=== PATIENT | female | born 1990 | race Caucasian/White ===

== ENCOUNTER 2020-03-13 12:31 | Inpatient (IN) | payer OTHER ==
--- OUTSIDE RECORDS SUMMARY | 2020-03-13 12:35 | XMS ---
:1990 Author Organization [facility] Support Name Relationship Address Phone UE Unavailable Unavailable Unavailable JAMILA SELF / SAME PATIENT [id number] [place] [address] Re-disclosure Warning The records that you are about to access may contain information from federally- assisted alcohol or drug abuse programs. If such information is present, then the following federally mandated warning applies: This information has been disclosed to you from records protected by federal confidentiality rules (42 CFR part 2). The federal rules prohibit you from making any further disclosure of this information unless further disclosure is expressly permitted by the written consent of the person to whom it pertains or as otherwise permitted by 42 CFR part 2. A general authorization for the release of medical or other information is NOT sufficient for this purpose. The Federal rules restrict any use of the information to criminally investigate or prosecute any alcohol or drug abuse patient.The records that you are about to access may contain highly sensitive health information, the redisclosure of which is protected by Article 27-F of the [facility] Public Health law. If you continue you may haveaccess to information: Regarding HIV / AIDS; Provided by facilities licensed or operated by the [facility] Office of Mental Health; or Provided by the [facility] Office for People With Developmental Disabilities. If such information is present, then the following [facility] mandated warning applies: This information has been disclosed to you from confidential records which are protected by state law. State law prohibits you from making any further disclosure of this information without the specific written consent of the person to whom it pertains, or as otherwise permitted by law. Any unauthorized further disclosure in violation of state law may result in a fine or fci sentence or both. A general authorization for the release of medical or other information is NOT sufficient authorization for further disclosure. Insurance Providers Payer name Policy type Policy ID Covered Covered alliance party's Policy P david / Coverage alliance party ID relationship to Gage Inf ormation type gage HEALTH [id number] FIRST Results ID Date Data Source [id number] 02/29/2020 05:07:00 PM EDT [place] Name Value Range Interpretation Code Description Data Millicent rce(s) Supporting Document(s ) [place] Result: This lab was ordered by [facility] and reported by [facility]. ID Date Data Source [id number] 01/04/2020 11:22:00 PM EDT [facility] Name Value Range Interpretation Code Description Data Millicent rce(s) Supporting Document(s ) SARS-CoV-2 [facility] RNA [facility] Ql ANNEMARIE+probe This lab was ordered by [facility] and reported by [facility]. ID Date Data Source [id number] 11/28/2019 09:38:00 AM EDT [place] Name Value Range Interpretation Code Description Data Millicent rce(s) Supporting Document(s ) SARS-CoV-2 [facility] RNA Resp Ql ANNEMARIE+probe This lab was ordered by [facility] a nd reported by [facility]. Procedure
--- NOTE | 2020-03-13 15:42 | BHS.RME ---
Substance Use & Tx History - Substance Use History Alcohol Substance amount: 3pints of vodka Frequency of use: Less than 3 times per week Substance route: Oral Date of Last Use: 03/13/20 - Last Treatment Date of last treatment: 01/30/18 to 01/31/18 not completed Where was last treatment: Detox Physical/Psych/Mental Status - Behavior Eye Contact: Normal - Cooperativeness Cooperativeness: Cooperative - Thinking Thought Processes: Logical Thought content: Future oriented - Physical Health Problems Is patient presently having any pain?: No Does patient presently have any injuries (include location): No Does patient currently have a fever: No CIWA Nausea/Vomitin Muscle Tremors: 3 Anxiety: 3 Agitation: 3 Paroxysmal Sweats: 1-Minimal Palms Moist Orientation: 0-Oriented Tacttile Disturbances: 1-Very Mild Itch/Numbness Auditory Disturbances: 0-None Visual Disturbances: 0-None Headache: 2-Mild CIWA-Ar Total Score: 15
--- NOTE | 2020-03-13 15:47 | HP ---
CIWA Score Nausea/Vomitin Muscle Tremors: 3 Anxiety: 3 Agitation: 3 Paroxysmal Sweats: 1-Minimal Palms Moist Orientation: 0-Oriented Tacttile Disturbances: 1-Very Mild Itch/Numbness Auditory Disturbances: 0-None Visual Disturbances: 0-None Headache: 2-Mild CIWA-Ar Total Score: 15 - Admission Criteria [facility]ASAS Guidelines: Admission for Medically Managed Detox: Requires at least one of the followin. CIWA greater than 12 2. Seizures within the past 24 hours 3. Delirium tremens within the past 24 hours 4. Hallucinations within the past 24 hours 5. Acute intervention needed for co occurring medical disorder 6. Acute intervention needed for co occurring psychiatric disorder 7. Severe withdrawal that cannot be handled at a lower level of care (continued vomiting, continued diarrhea, abnormal vital signs) requiring intravenous medication and/or fluids 8. 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 ...LMP: 03/09/20 ...: No Psych: Yes: Anxiety, Depression - Smoking History Smoking history: Never smoked Have you smoked in the past 12 months: No - Alcohol/Substance Use Hx Alcohol Use: Yes History of Substance Use: reports: None Date of Last Use: 03/13/20 - Social History Usual Living Arrangement: Yes: With Parent Do you think of yourself as: Werner, Lesbian or Homosexual ADL: Support Services Occupation: unemployed History of Recent Travel: No Other Social History: 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,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,no legal issue Admission ROS S - [facility] Chief Complaint: i ma here for detox from alcohol Allergies/Adverse Reactions: Allergies Allergy/AdvReac Type Severity Reaction Status Date / Time No Known Allergies Allergy Verified 01/30/18 17:54 History of Present Illness: this 29 years old female with alcohol dependence seeking detox,withdrawal symptom, last detox [facility] 01/30/19 to 01/31/18 not completed unemployed,living with mother,no legal issue,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,depression longest sobriety 5 months denied seizure syncope Exam Limitations: No Limitations - Ebola screening Have you traveled outside of the country in the last 21 days: No Have you had contact with anyone from an Ebola affected area: No Have you been sick,other than usual withdrawal symptoms: No Do you have a fever: No - Review of Systems Constitutional: Malaise, Night Sweats, Changes in sleep, Weakness EENT: reports: Nose Congestion Respiratory: reports: No Symptoms reported Cardiac: reports: No Symptoms Reported GI: reports: Nausea, Vomiting, Abdominal cramping : reports: No Symptoms Reported Musculoskeletal: reports: Back Pain, Muscle Pain Integumentary: reports: Dryness Neuro: reports: Headache, Tremors Endocrine: reports: No Symptoms Reported Hematology: reports: No Symptoms Reported Psychiatric: reports: No Sypmtoms Reported, Judgement Intact, Mood/Affect Appropiate, Anxious, Depressed Patient History - Patient Medical History Hx Anemia: No Hx Asthma: No Hx Chronic Obstructive Pulmonary Disease (COPD): No Hx Cancer: No Hx Cardiac Disorders: No Hx Congestive Heart Failure: No Hx Hypertension: No Hx Hypercholesterolemia: Yes (no medication) Hx Pacemaker: No HX Cerebrovascular Accident: No Hx Seizures: No Hx Dementia: No Hx Diabetes: No Hx Gastrointestinal Disorders: No Hx Liver Disease: No Hx Genitourinary Disorders: No Hx Sexually Transmitted Disorders: No Hx Renal Disease (ESRD): No Hx Thyroid Disease: No Hx Human Immunodeficiency Virus (HIV): No (2019 negative) Hx Hepatitis C: No Hx Depression: Yes (anxiety) Hx Suicide Attempt: No Hx Bipolar Disorder: No Hx Schizophrenia: No Other Medical History: no suicidal,no homicidal - Patient Surgical History Past Surgical History: No Hx Neurologic Surgery: No Hx Cataract Extraction: No Hx Cardiac Surgery: No Hx Lung Surgery: No Hx Breast Surgery: No Hx Breast Biopsy: No Hx Abdominal Surgery: No Hx Appendectomy: No Hx Cholecystectomy: No Hx Genitourinary Surgery: No Hx Section: No Hx Orthopedic Surgery: No Anesthesia Reaction: No - PPD History Previous Implant?: Yes Documented Results: Negative w/o proof Implanted On Prior R Admission?: Yes Date: 02/01/18 PPD to be Administered?: Yes - Reproductive History Patient is a Female of Child Bearing Age (11 -55 yrs old): Yes Last Menstrual Period: 03/09/20 Patient : No - Smoking Cessation Smoking history: Never smoked Have you smoked in the past 12 months: No Hx Chewing Tobacco Use: No - Substance & Tx. History Hx Alcohol Use: Yes Hx Substance Use: No Substance Use Type: Alcohol Hx Substance Use Treatment: Yes ([facility] 01/30/18 to 01/31/18 not completed) - Substances abused Alcohol Substance route: Oral Frequency: Daily Amount used: 3pints of vodka Age of first use: 22 Date of last use: 03/13/20 Admission Physical Exam [facility] - Vital Signs Vital Signs: bp 96/66 p 85 r 18 t 97.3 bag 0.289 pulse ox 98% - Physical General Appearance: Yes: Moderate Distress, Tremorous, Irritable, Sweating, Anxious HEENTM: Yes: Within Normal Limits, SUMMER, Pharynx Normal Respiratory: Yes: Lungs Clear, Normal Breath Sounds, No Respiratory Distress Neck: Yes: Within Normal Limits, Supple, Trachea in good position Breast: Yes: Breast Exam Deferred Cardiology: Yes: Within Normal Limits, Regular Rhythm, Regular Rate, S1, S2 Abdominal: Yes: Within Normal Limits, Normal Bowel Sounds, Non Tender, Soft Genitourinary: Yes: Within Normal Limits Back: Yes: Muscle Spasm Musculoskeletal: Yes: Back pain, Muscle Pain Extremities: Yes: Tremors Neurological: Yes: 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 technician II-XII NML intact, Alert, Motor Strength 5/5 Integumentary: Yes: Dry Lymphatic: Yes: Within Normal Limits - Diagnostic (1) Alcohol dependence with withdrawal Status: Chronic Qualifiers: Complication of substance-induced condition: uncomplicated Qualified Code(s): F10.230 - Alcohol dependence with withdrawal, uncomplicated (2) Alcohol dependence with intoxication Status: Resolved (3) Syncope Status: Acute (4) Anxiety and depression Status: Chronic (5) Anxiety and depression Status: Acute (6) Insomnia Status: Acute Cleared for Admission [facility] - Detox or Rehab [facility] Level of Care: Medically Managed Detox Regimen/Protocol: Librium Inpatient Rehab Admission - Rehab Decision to Admit Inpatient rehab admission?: No
[2020-03-13] MEDS ORDERED: MENTHOL/PHENOL 1 EACH UD MM PRN (16:16)
[2020-03-13] MEDS ORDERED: ACETAMINOPHEN 325 MG TABLET (FP) PO PRN ×2 (16:16)
[2020-03-13] MEDS ORDERED: MAG HYDROX/AL HYDROX/SIMETH 30 ML UNIT-DOSE CUP PO PRN (16:16)
[2020-03-13] MEDS ORDERED: IBUPROFEN 400 MG TABLET (FP) PO PRN (16:16)
[2020-03-13] MEDS ORDERED: ONDANSETRON *ODT* 4 MG TABLET SL PRN (16:16)
[2020-03-13] MEDS ORDERED: chlordiazePOXIDE HCL 25 MG CAPSULE PO PRN (16:16)
[2020-03-13] MEDS ORDERED: BISMUTH SUBSALICYLATE 524 MG/30 ML UD PO PRN (16:16)
[2020-03-13] MEDS ORDERED: MAGNESIUM CITRATE 300 ML BOTTLE PO PRN (16:16)
[2020-03-13] MEDS ORDERED: MAGNESIUM HYDROX 2400MG/30ML ORAL SUSPENSION 30 ML CUP PO PRN (16:16)
[2020-03-13 16:38] VITALS: BMI 29.0
--- OUTSIDE RECORDS SUMMARY | 2020-03-13 16:47 | XMS ---
:1990 Author Organization [facility] Support Name Relationship Address Phone UE Unavailable Unavailable Unavailable JAMILA SELF / SAME PATIENT [address] [place] [address] Re-disclosure Warning The records that you are [...] is protected by Article 27-F of the [facility] Public Health law. If you continue you may haveaccess to information: Regarding HIV / AIDS; Provided by facilities licensed or operated by the [facility] Office of Mental Health; or Provided by the [facility] Office for People With Developmental Disabilities. If such information is present, then the following [facility] mandated warning applies: This information has [...] law may result in a fine or alf sentence or both. A general authorization for the release of medical or other information is NOT sufficient authorization for further disclosure. Insurance Providers Payer name Policy type Policy ID Covered Covered constitution party's Policy P david / Coverage constitution party ID relationship to Gage Inf ormation type gage HEALTH [id number] FIRST Results ID Date Data Source [id number] 02/29/2020 05:07:00 PM EDT [facility] Name Value Range Interpretation Code Description Data Millicent rce(s) Supporting Document(s ) [place] Result: This lab was ordered by [facility] and reported by [facility]. ID Date Data Source [id number] 01/04/2020 11:22:00 PM EDT [facility] Name Value Range Interpretation Code Description Data Millicent rce(s) Supporting Document(s ) SARS-CoV-2 [facility] RNA [facility] Ql ANNEMARIE+probe This lab was ordered by [facility] and reported by [facility]. ID Date Data Source [id number] 11/28/2019 09:38:00 AM EDT [facility] Name Value Range Interpretation Code Description Data Millicent rce(s) Supporting Document(s ) SARS-CoV-2 [facility] RNA Resp Ql ANNEMARIE+probe This lab was ordered by [facility] a nd reported by [facility]. Procedure
[2020-03-13] MEDS: METHOCARBAMOL 500 MG TABLET PO PRN (17:30)
[2020-03-13] MEDS: hydrOXYzine PAMOATE 25 MG CAPSULE (FP) PO SCH ×2 (17:31→22:32)
[2020-03-13] MEDS: chlordiazePOXIDE HCL 25 MG CAPSULE PO SCH ×2 (17:31→22:32)
[2020-03-13] MEDS ORDERED: chlordiazePOXIDE HCL 25 MG CAPSULE PO ONE (18:31)
--- NOTE | 2020-03-13 18:35 | PN ---
[place] Progress Note Note: patient with severe withdrawal symptom,recieved librium 50 ms before,will give librium 25 mgs po now, Vital Signs Temperature 97.5 F L 03/13/20 17:23 Pulse Rate 74 03/13/20 17:23 Respiratory Rate 18 03/13/20 17:23 Blood Pressure 107/73 03/13/20 17:23 O2 Sat by Pulse Oximetry (%) 98 03/13/20 17:52 close monitoring of vital signs
[2020-03-13] MEDS: THIAMINE HCL 100 MG TABLET (FP) PO SCH (22:32)
[2020-03-13] MEDS: MELATONIN 5 MG TABLETS PO SCH (22:33)
[2020-03-14] MEDS: chlordiazePOXIDE HCL 25 MG CAPSULE PO SCH ×4 (05:52→22:42)
[2020-03-14] MEDS: hydrOXYzine PAMOATE 25 MG CAPSULE (FP) PO SCH ×2 (05:52→10:18)
--- NOTE | 2020-03-14 08:20 | CONSULT ---
[facility] Psychiatric Consult - Data Date of interview: 03/14/20 Admission source: Self-referred Identifying data: Ms Vogel is a 29 years old female, unempolyed with no source of income, living with her mother seeking detox treatment for alcohol Substance Abuse History: Reports history of alcohol use. Refer to addiction counselor's summary for further information Medical History: Significant for hypercholesterolemia Psychiatric History: Patient is known for one previous admission to this facility. She reports that her first psychiatric contact occured at age 19 when she was treated with psychotherapy for Social Anxiety Disorder by a staff psychiatrist at [facility]. She said that she was in treatment for less that 6 months. At age 28, she reports seeing a staff psychiatrist at [facility] because depression, anxiety and alcohol use. She said that she was prescribed Zoloft and Gabapentin which she took for approximately 2-3 months. She denies previous psychiatric hospitalization or suicidal attempt. At present, report feeling irritable and sleeping poorly Physical/Sexual Abuse/Trauma History: Denies history of abuse as a child or DV relationship as an adult Mental Status Exam - Mental Status Exam Alert and Oriented to: Time, Place, Person Cognitive Function: Fair Patient Appearance: Well Groomed Mood: Irritable Affect: Appropriate Patient Behavior: Cooperative Speech Pattern: Clear Voice Loudness: Normal Thought Process: Intact Hallucinations: Denies Suicidal Ideation: Denies Homicidal Ideation: Denies Insight/Judgement: Poor Sleep: Poorly Appetite: Poor Muscle strength/Tone: Normal Gait/Station: Normal Psychiatric Findings - Problem List ([place] 1, 2,3) (1) Anxiety and depression Current Visit: Yes Status: Chronic (2) Alcohol-induced mood disorder Current Visit: Yes Status: Acute (3) Alcohol-induced sleep disorder Current Visit: Yes Status: Acute (4) Alcohol dependence with intoxication Current Visit: Yes Status: Resolved (5) Uncomplicated alcohol dependence Current Visit: Yes Status: Acute (6) HLD (hyperlipidemia) Current Visit: Yes Status: Chronic - Initial Treatment Plan Initial Treatment Plan: 1) Continue Melatonin 5 mg po HS prn for insomnia ordered by rEickson Lewis MD. 2) Continue inpatient detoxification
[2020-03-14] MEDS: PRENATAL VITAMINS W/ FOLIC ACID TABLET (FP) PO SCH (10:17)
--- NOTE | 2020-03-14 10:17 | PN ---
S CIWA - CIWA Score Nausea/Vomitin-Mild Nausea/No Vomiting Muscle Tremors: 3 Anxiety: 3 Agitation: 2 Paroxysmal Sweats: 1-Minimal Palms Moist Orientation: 0-Oriented Tacttile Disturbances: 0-None Auditory Disturbances: 0-None Visual Disturbances: 1-Very Mild Sensitivity Headache: 1-Very Mild CIWA-Ar Total Score: 12 S Progress Note (SOAP) Subjective: 29 years old female was admitted on 03/13/20 for alcohol withdrawal sx management treating with librium detox regiment feels tired prefers to resting in bed limited conversation with staff increase vistaril to 50mg po q6h robaxin 750mg po x 1 Objective: 03/14/20 10:21 Vital Signs - 24 hr 03/13/20 03/13/20 03/13/20 16:35 17:23 17:52 Temperature 97.3 F L 97.5 F L Pulse Rate 85 74 Respiratory 18 18 Rate Blood Pressure 96/66 107/73 O2 Sat by Pulse 100 98 Oximetry (%) 03/13/20 03/14/20 03/14/20 20:28 07:03 09:15 Temperature 97.7 F 97.7 F 96.4 F L Pulse Rate 81 92 H 80 Respiratory 18 18 18 Rate Blood Pressure 102/68 113/76 100/66 O2 Sat by Pulse 100 99 99 Oximetry (%) 03/14/20 10:22 lab pending Assessment: 03/14/20 10:22 alcohol withdrawal Plan: librium regiment
[2020-03-14] MEDS ORDERED: METHOCARBAMOL 750 MG TAB PO ONE (10:30)
[2020-03-14 10:32] LABS: HEMATOCRIT 31.3 % (32.4-45.2); HEMOGLOBIN 10.6 GM/dL (10.7-15.3); MCH 29.8 pg (25.7-33.7); MCHC 33.9 g/dl (32.0-36.0); MEAN PLT VOLUME 8.3 fl (7.5-11.1); PLATELET COUNT 270 K/MM3 (134-434); RBC 3.56 M/mm3 (3.60-5.2); RDW 16.4 % (11.6-15.6); WHITE BLOOD COUNT 4.1 K/mm3 (4.0-10.0)
[2020-03-14] MEDS: METHOCARBAMOL 500 MG TABLET PO PRN (10:54)
[2020-03-14] MEDS: hydrOXYzine PAMOATE 50 MG CAPSULE (FP) PO SCH ×3 (11:18→22:42)
[2020-03-14 11:19] LABS: ALBUMIN 3.5 g/dl (3.4-5.0); BLOOD UREA NITROGEN 5.7 mg/dL (7-18); CALCIUM 8.5 mg/dL (8.5-10.1); CREATININE 0.7 mg/dL (0.55-1.3); POTASSIUM 3.6 mmol/L (3.5-5.1)
[2020-03-14 11:21] LABS: BILIRUBIN,TOTAL 0.7 mg/dL (0.2-1)
[2020-03-14] MEDS: THIAMINE HCL 100 MG TABLET (FP) PO SCH (22:42)
[2020-03-14] MEDS: MELATONIN 5 MG TABLETS PO SCH (22:42)
[2020-03-15] MEDS: chlordiazePOXIDE HCL 25 MG CAPSULE PO SCH ×2 (05:55→10:20)
[2020-03-15] MEDS: hydrOXYzine PAMOATE 50 MG CAPSULE (FP) PO SCH ×2 (05:55→10:20)
[2020-03-15 08:54] VITALS: BP 108/67; PULSE 72; TEMP 97.3
--- NOTE | 2020-03-15 09:07 | DS ---
[facility] Detox Discharge Summary Admission Date: 03/13/20 Discharge Date: 03/15/20 - History Present History: Alcohol Dependence Additional Comments: 29 years old female was admitted on 03/13/20 for alcohol withdrawal sx management treated with librium detox regiment seen by psychiatrist no medical intervention that ms espinoza was treated at out patient mental health services for anxiety depression and alcohol abuse ms espinoza prefers to leave the detox and return to work ms espinoza prefers [facility] as alcohol abuse treatment ms espinoza prefers to locate out patient treatment services at "[facility], I do not like them" "not [facility] they are not good" ms espinoza prefers to fine one out patient for alcohol abuse herself around her neighborhood alert oriented x 3 speech clearly coherently ambulating steady gaits from bed to bathroom ate 90% breakfast tolerated food well General Appearance: Yes: no Distress, mild Tremorous, not Irritable,no Sweating, mild Anxious HEENTM: Yes: Within Normal Limits, SUMMER, Pharynx Normal Respiratory: Yes: Lungs Clear, Normal Breath Sounds, No Respiratory Distress Neck: Yes: Within Normal Limits, Supple, Trachea in good position Breast: Yes: Breast Exam Deferred Cardiology: Yes: Within Normal Limits, Regular Rhythm, Regular Rate, S1, S2 Abdominal: Yes: Within Normal Limits, Normal Bowel Sounds, Non Tender, Soft Genitourinary: Yes: Within Normal Limits Back: Yes: Muscle Spasm Musculoskeletal: Yes: Back pain, Muscle Pain Extremities: Yes: Tremors Neurological: Yes: meal cooker II-XII NML intact, Alert, Motor Strength 5/5 Integumentary: Yes: Dry Lymphatic: Yes: Within Normal Limits Pertinent Past History: time for discharge 49 minutes treatment team met with ms espinoza to discuss benefits of librium regiment completion ms espinoza states that she needs to go to work and following up with her doctor about high cholesterol - Physical Exam Results Vital Signs: Vital Signs Temperature 97.3 F L 03/15/20 08:53 Pulse Rate 72 03/15/20 08:53 Respiratory Rate 18 03/15/20 08:53 Blood Pressure 108/67 03/15/20 08:53 O2 Sat by Pulse Oximetry (%) 100 03/15/20 08:53 Pertinent Admission Physical Exam Findings: alcohol withdrawal Vital Signs - 24 hr 03/14/20 03/14/20 03/14/20 13:03 16:53 20:30 Temperature 97.1 F L 97.1 F L 97.8 F Pulse Rate 70 55 L 75 Respiratory 16 18 17 Rate Blood Pressure 102/76 105/80 111/73 O2 Sat by Pulse 100 100 Oximetry (%) 03/15/20 03/15/20 06:36 08:53 Temperature 97.2 F L 97.3 F L Pulse Rate 73 72 Respiratory 18 18 Rate Blood Pressure 99/69 108/67 O2 Sat by Pulse 100 100 Oximetry (%) Laboratory Tests 03/13/20 03/13/20 03/14/20 17:00 17:02 07:25 WBC RBC Hgb Hct MCV MCH MCHC RDW Plt Count MPV Sodium Potassium Chloride Carbon Dioxide Anion Gap BUN Creatinine Est GFR (CKD-EPI)AfAm Est GFR (CKD-EPI)NonAf Random Glucose Calcium Total Bilirubin AST ALT Alkaline Phosphatase Total Protein Albumin POC Urine HCG, Qual Negative Syphilis Serology Non-reactive COVID-19 (ANNEMARIE) Not detected HIV Ag/Ab Combo Qual 03/14/20 03/14/20 03/14/20 07:25 07:25 07:25 WBC 4.1 RBC 3.56 L Hgb 10.6 L Hct 31.3 L MCV 88.0 MCH 29.8 MCHC 33.9 RDW 16.4 H Plt Count 270 D MPV 8.3 Sodium 139 Potassium 3.6 Chloride 104 Carbon Dioxide 29 Anion Gap 7 L BUN 5.7 L Creatinine 0.7 Est GFR (CKD-EPI)AfAm 137.62 Est GFR (CKD-EPI)NonAf 118.74 Random Glucose 98 Calcium 8.5 Total Bilirubin 0.7 AST 104 H ALT 123 H Alkaline Phosphatase 90 Total Protein 7.0 Albumin 3.5 POC Urine HCG, Qual Syphilis Serology COVID-19 (ANNEMARIE) HIV Ag/Ab Combo Qual Negative lab noted - Treatment Hospital Course: Detox Protocol Followed, Detoxed Safely, Responded well, Discharged Condition Good, Rehab Referral Accepted Patient has Accepted a Rehab Referral to: [facility] - Medication Discharge Medications: Ambulatory Orders NK [No Known Home Medication] 01/30/18 - Diagnosis (1) Substance induced mood disorder Current Visit: Yes Status: Resolved (2) Uncomplicated alcohol dependence Current Visit: Yes Status: Acute (3) HLD (hyperlipidemia) Current Visit: Yes Status: Chronic Qualifiers: Hyperlipidemia type: pure hypertriglyceridemia Qualified Code(s): E78.1 - Pure hyperglyceridemia - AMA Did Patient Leave Against Medical Advice: No CIWA Score - CIWA Score Nausea/Vomitin-No Nausea/No Vomiting Muscle Tremors: 2 Anxiety: 2 Agitation: 1-Slight > Activity Paroxysmal Sweats: No Perspiration Orientation: 0-Oriented Tacttile Disturbances: 0-None Auditory Disturbances: 0-None Visual Disturbances: 1-Very Mild Sensitivity Headache: 1-Very Mild CIWA-Ar Total Score: 7
[2020-03-15] MEDS: PRENATAL VITAMINS W/ FOLIC ACID TABLET (FP) PO SCH (10:20)
[2020-03-15] MEDS ORDERED: FLU VACCINE (FLULAVAL) PF 60 MCG/0.5 ML SYRINGE 2020-2021 IM ONE (12:00)
[2020-03-15] MEDS ORDERED: PNEUMOC 13-VAL CONJ-DIP CRM/PF 0.5 ML DISP.SYRIN IM ONE (12:00)
[2020-03-15] MEDS ORDERED: PNEUMOCOCCAL 23 VACCINE 0.5 ML VIAL IM ONE (12:00)
[2020-03-16] MEDS ORDERED: chlordiazePOXIDE HCL 10 MG CAPSULE PO PRN
[2020-03-16] MEDS ORDERED: chlordiazePOXIDE HCL 10 MG CAPSULE PO SCH (05:00)
[2020-03-17] MEDS ORDERED: chlordiazePOXIDE HCL 10 MG CAPSULE PO SCH (05:00)
[2020-03-18] MEDS ORDERED: chlordiazePOXIDE HCL 10 MG CAPSULE PO ONE (05:00)
== END 2020-03-15 10:40 | disposition home or self-care (01) | DRG 775 ==
LOC: YASAS 12:31 → Y3N 16:44
PROVIDERS: ADMIT Allergy & Immunology; ATTEND Allergy & Immunology
PROC: HZ2ZZZZ Detoxification Services for Substance Abuse Treatment (ICD-10-PCS; principal; 2020-03-13)
DX: F10.230 Alcohol dependence with withdrawal, uncomplicated (principal); F10.24 Alcohol dependence with alcohol-induced mood disorder; F19.24 Other psychoactive substance dependence with psychoactive substance-induced mood disorder; F10.282 Alcohol dependence with alcohol-induced sleep disorder; F32.9 Major depressive disorder, single episode, unspecified; F41.9 Anxiety disorder, unspecified; E78.1 Pure hyperglyceridemia; Z56.0 Unemployment, unspecified
CPT/HCPCS: 36415; 80053; 81025; 85027; 86780; 87389; C9803; Q0162; U0003

== ENCOUNTER 2020-05-03 13:20 | Inpatient (IN) | payer OTHER ==
[2020-05-03 14:03] VITALS: BMI 27.6
[2020-05-03] MEDS ORDERED: ONDANSETRON *ODT* 4 MG TABLET ONE (14:39)
[2020-05-03] MEDS: ONDANSETRON *ODT* 4 MG TABLET SL PRN ×2 (14:40→22:12)
[2020-05-03] MEDS ORDERED: MENTHOL/PHENOL 1 EACH UD MM PRN (14:41)
[2020-05-03] MEDS ORDERED: MAG HYDROX/AL HYDROX/SIMETH 30 ML UNIT-DOSE CUP PO PRN (14:41)
[2020-05-03] MEDS ORDERED: IBUPROFEN 400 MG TABLET (FP) PO PRN (14:41)
[2020-05-03] MEDS ORDERED: MAGNESIUM CITRATE 300 ML BOTTLE PO PRN (14:41)
[2020-05-03] MEDS ORDERED: ACETAMINOPHEN 325 MG TABLET (FP) PO PRN ×2 (14:41)
[2020-05-03] MEDS ORDERED: MAGNESIUM HYDROX 2400MG/30ML ORAL SUSPENSION 30 ML CUP PO PRN (14:41)
[2020-05-03] MEDS: chlordiazePOXIDE HCL 25 MG CAPSULE PO PRN ×2 (15:34→19:19)
[2020-05-03 16:28] LABS: POTASSIUM 3.7 mmol/L (3.5-5.1)
[2020-05-03 16:30] LABS: BLOOD UREA NITROGEN 8.4 mg/dL (7-18); CALCIUM 9.1 mg/dL (8.5-10.1)
[2020-05-03 16:31] LABS: ALBUMIN 4.7 g/dl (3.4-5.0)
[2020-05-03 16:32] LABS: HEMATOCRIT 40.8 % (32.4-45.2); HEMOGLOBIN 13.9 GM/dL (10.7-15.3); MCH 29.9 pg (25.7-33.7); MCHC 33.9 g/dl (32.0-36.0); PLATELET COUNT 556 K/MM3 (134-434); RBC 4.63 M/mm3 (3.60-5.2); RDW 16.2 % (11.6-15.6); WHITE BLOOD COUNT 8.2 K/mm3 (4.0-10.0)
[2020-05-03 16:34] LABS: CREATININE 0.9 mg/dL (0.55-1.3)
[2020-05-03 16:35] LABS: BILIRUBIN,TOTAL 0.5 mg/dL (0.2-1); TOT PROT 9.6 g/dl (6.4-8.2)
[2020-05-03] MEDS: chlordiazePOXIDE HCL 25 MG CAPSULE PO SCH ×2 (17:16→22:12)
[2020-05-03] MEDS: hydrOXYzine PAMOATE 25 MG CAPSULE (FP) PO SCH ×2 (17:17→22:12)
[2020-05-03] MEDS ORDERED: TRIMETHOBENZAMIDE HCL 200MG/2ML INJ IM ONE (18:28)
[2020-05-03] MEDS: METHOCARBAMOL 500 MG TABLET PO PRN (19:18)
[2020-05-03] MEDS: THIAMINE HCL 100 MG TABLET (FP) PO SCH (22:12)
[2020-05-03] MEDS: MELATONIN 5 MG TABLETS PO SCH (22:13)
[2020-05-04] MEDS: hydrOXYzine PAMOATE 25 MG CAPSULE (FP) PO SCH (06:00)
[2020-05-04] MEDS: chlordiazePOXIDE HCL 25 MG CAPSULE PO SCH ×4 (06:00→22:10)
[2020-05-04] MEDS: METHOCARBAMOL 500 MG TABLET PO PRN (06:02)
[2020-05-04] MEDS: ONDANSETRON *ODT* 4 MG TABLET SL PRN (06:03)
[2020-05-04] MEDS ORDERED: IBUPROFEN 600 MG TABLET (FP) PO ONE (10:00)
[2020-05-04] MEDS: PRENATAL VITAMINS W/ FOLIC ACID TABLET (FP) PO SCH (10:09)
[2020-05-04] MEDS: BISMUTH SUBSALICYLATE 262 MG/15 ML BTL PO PRN ×2 (10:13→22:13)
[2020-05-04] MEDS: MELATONIN 5 MG TABLETS PO SCH (22:10)
[2020-05-04] MEDS: THIAMINE HCL 100 MG TABLET (FP) PO SCH (22:10)
[2020-05-05] MEDS: chlordiazePOXIDE HCL 25 MG CAPSULE PO SCH ×4 (05:45→22:02)
[2020-05-05] MEDS: PRENATAL VITAMINS W/ FOLIC ACID TABLET (FP) PO SCH (10:08)
[2020-05-05] MEDS: LOPERAMIDE HCL 2 MG CAPSULE PO PRN (12:15)
[2020-05-05] MEDS: METHOCARBAMOL 500 MG TABLET PO PRN ×2 (12:18→22:05)
[2020-05-05] MEDS: THIAMINE HCL 100 MG TABLET (FP) PO SCH (22:02)
[2020-05-05] MEDS: MELATONIN 5 MG TABLETS PO SCH (22:02)
[2020-05-06] MEDS ORDERED: chlordiazePOXIDE HCL 10 MG CAPSULE PO PRN
[2020-05-06] MEDS: chlordiazePOXIDE HCL 10 MG CAPSULE PO SCH ×4 (06:15→22:06)
[2020-05-06] MEDS: PRENATAL VITAMINS W/ FOLIC ACID TABLET (FP) PO SCH (10:41)
[2020-05-06] MEDS: LOPERAMIDE HCL 2 MG CAPSULE PO PRN (10:43)
[2020-05-06] MEDS: THIAMINE HCL 100 MG TABLET (FP) PO SCH (22:06)
[2020-05-06] MEDS: MELATONIN 5 MG TABLETS PO SCH (22:06)
[2020-05-06] MEDS: METHOCARBAMOL 500 MG TABLET PO PRN (22:07)
[2020-05-07] MEDS ORDERED: chlordiazePOXIDE HCL 10 MG CAPSULE PO SCH (05:00)
[2020-05-07 09:04] VITALS: BP 120/87; PULSE 81; TEMP 97.1
[2020-05-07] MEDS: PRENATAL VITAMINS W/ FOLIC ACID TABLET (FP) PO SCH (09:15)
[2020-05-08] MEDS ORDERED: chlordiazePOXIDE HCL 10 MG CAPSULE PO ONE (05:00)
== END 2020-05-07 11:11 | disposition home or self-care (01) | DRG 775 ==
LOC: YASAS 13:20 → Y3N 14:17
PROVIDERS: ADMIT Allergy & Immunology; ATTEND Allergy & Immunology
PROC: HZ2ZZZZ Detoxification Services for Substance Abuse Treatment (ICD-10-PCS; principal; 2020-05-03)
DX: F10.230 Alcohol dependence with withdrawal, uncomplicated (principal); F10.24 Alcohol dependence with alcohol-induced mood disorder; E78.1 Pure hyperglyceridemia; R00.0 Tachycardia, unspecified; Z56.0 Unemployment, unspecified
CPT/HCPCS: 36415; 80053; 85027; 86780; 93005; 93010; C9803; Q0162; U0003

== ENCOUNTER 2020-07-15 17:13 | Emergency (ER) | payer OTHER ==
[2020-07-15] MEDS ORDERED: HALOPERIDOL LACTATE 5 MG/ML ONE (17:47)
[2020-07-15] MEDS ORDERED: LORazepam 2 MG/ML SDV VIAL IM ONE (17:47)
[2020-07-15] MEDS ORDERED: HALOPERIDOL LACTATE 5 MG/ML IM ONE (17:47)
[2020-07-15] MEDS ORDERED: LORazepam 2 MG/ML SDV VIAL ONE (17:48)
[2020-07-15 20:14] LABS: BASO % 0.9 % (0-2.0); EOS % 1.4 % (0-4.5); HEMATOCRIT 33.9 % (32.4-45.2); HEMOGLOBIN 11.6 GM/dL (10.7-15.3); LYMPH % 60.5 % (8-40); MCHC 34.1 g/dl (32.0-36.0); MEAN PLT VOLUME 8.3 fl (7.5-11.1); MONO % 2.7 % (3.8-10.2); NEUT % 34.5 % (42.8-82.8); PLATELET COUNT 316 K/MM3 (134-434); RBC 3.85 M/mm3 (3.60-5.2)
[2020-07-15 20:18] VITALS: TEMP 97.8; BMI 25.8
[2020-07-15 20:26] LABS: POTASSIUM 3.3 mmol/L (3.5-5.1)
[2020-07-15 20:28] LABS: ALBUMIN 3.7 g/dl (3.4-5.0); BLOOD UREA NITROGEN 3.8 mg/dL (7-18); CALCIUM 8.3 mg/dL (8.5-10.1)
[2020-07-15 20:31] LABS: CREATININE 0.5 mg/dL (0.55-1.3)
[2020-07-15] MEDS ORDERED: POTASSIUM CHLORIDE TABS 20 MEQ TABLET.ER (FP) PO ONE ×2 (20:31→20:49)
[2020-07-15 20:33] LABS: BILIRUBIN,TOTAL 0.2 mg/dL (0.2-1); TOT PROT 7.4 g/dl (6.4-8.2)
[2020-07-15 21:22] LABS: ANISOCYTOSIS 1+; MACROCYTOSIS 0; PLATELET ESTIMATE NORMAL
[2020-07-16 00:20] VITALS: BP 119/60; PULSE 90
== END 2020-07-16 03:05 | disposition home or self-care (01) ==
LOC: JER 17:13
PROC: 3E033GC Introduction of Other Therapeutic Substance into Peripheral Vein, Percutaneous Approach (ICD-10-PCS; principal; 2020-07-15)
PROC: 3E023GC Introduction of Other Therapeutic Substance into Muscle, Percutaneous Approach (ICD-10-PCS; principal; 2020-07-15)
DX: F10.129 Alcohol abuse with intoxication, unspecified (principal)
CPT/HCPCS: 36415; 80053; 80307; 84703; 85025; 93005; 93010; 99284-25

== ENCOUNTER 2020-07-16 04:00 | Inpatient (IN) | payer OTHER ==
[2020-07-16] MEDS ORDERED: chlordiazePOXIDE HCL 25 MG CAPSULE PO PRN (04:29)
[2020-07-16] MEDS ORDERED: MAGNESIUM CITRATE 300 ML BOTTLE PO PRN (04:29)
[2020-07-16] MEDS ORDERED: MAG HYDROX/AL HYDROX/SIMETH 30 ML UNIT-DOSE CUP PO PRN (04:29)
[2020-07-16] MEDS ORDERED: ONDANSETRON *ODT* 4 MG TABLET SL PRN (04:29)
[2020-07-16] MEDS ORDERED: MAGNESIUM HYDROX 2400MG/30ML ORAL SUSPENSION 30 ML CUP PO PRN (04:29)
[2020-07-16] MEDS ORDERED: ACETAMINOPHEN 325 MG TABLET (FP) PO PRN ×2 (04:29)
[2020-07-16] MEDS ORDERED: METHOCARBAMOL 500 MG TABLET PO PRN (04:29)
[2020-07-16] MEDS ORDERED: BISMUTH SUBSALICYLATE 524 MG/30 ML UD PO PRN (04:29)
[2020-07-16] MEDS ORDERED: IBUPROFEN 400 MG TABLET (FP) PO PRN (04:29)
[2020-07-16] MEDS ORDERED: BENZOCAINE/MENTH/CETYLPYRD CL 1 EACH LOZENGE MM PRN (04:29)
[2020-07-16] MEDS ORDERED: chlordiazePOXIDE HCL 25 MG CAPSULE ONE (05:06)
[2020-07-16] MEDS: chlordiazePOXIDE HCL 25 MG CAPSULE PO SCH ×2 (05:07→10:42)
[2020-07-16 05:20] VITALS: BMI 27.4
[2020-07-16] MEDS: hydrOXYzine PAMOATE 25 MG CAPSULE (FP) PO PRN ×3 (06:10→22:11)
[2020-07-16] MEDS: PRENATAL VITAMINS W/ FOLIC ACID TABLET (FP) PO SCH (10:42)
[2020-07-16 13:09] LABS: HIV INTERPRETATION NEGATIVE (NEGATIVE)
[2020-07-16] MEDS ORDERED: LORazepam 1 MG TABLET PO PRN (15:42)
[2020-07-16] MEDS: LORazepam 1 MG TABLET PO SCH ×2 (17:34→22:11)
[2020-07-16] MEDS ORDERED: MELATONIN 5 MG TABLETS PO SCH (22:00)
[2020-07-16] MEDS: THIAMINE HCL 100 MG TABLET (FP) PO SCH (22:11)
[2020-07-16] MEDS: MIRTAZAPINE 15 MG TABLET (FP) PO SCH (22:11)
[2020-07-17] MEDS ORDERED: chlordiazePOXIDE HCL 25 MG CAPSULE PO SCH (05:00)
[2020-07-17] MEDS: LORazepam 1 MG TABLET PO SCH ×4 (06:32→22:40)
[2020-07-17] MEDS: hydrOXYzine PAMOATE 25 MG CAPSULE (FP) PO PRN ×3 (06:33→22:42)
[2020-07-17] MEDS: PRENATAL VITAMINS W/ FOLIC ACID TABLET (FP) PO SCH (10:22)
[2020-07-17] MEDS ORDERED: FLU VACCINE (FLULAVAL) PF 60 MCG/0.5 ML SYRINGE 2020-2021 IM ONE (12:00)
[2020-07-17 12:44] LABS: HEMATOCRIT 35.1 % (32.4-45.2); MCH 30.4 pg (25.7-33.7); MEAN CELL VOLUME 89.2 fl (80-96); MEAN PLT VOLUME 8.5 fl (7.5-11.1); PLATELET COUNT 297 K/MM3 (134-434); RBC 3.94 M/mm3 (3.60-5.2); RDW 15.3 % (11.6-15.6); WHITE BLOOD COUNT 6.1 K/mm3 (4.0-10.0)
[2020-07-17 12:48] LABS: POTASSIUM 3.4 mmol/L (3.5-5.1)
[2020-07-17 12:52] LABS: CALCIUM 8.3 mg/dL (8.5-10.1)
[2020-07-17 12:53] LABS: ALBUMIN 3.9 g/dl (3.4-5.0); BLOOD UREA NITROGEN 4.8 mg/dL (7-18)
[2020-07-17 12:56] LABS: CREATININE 0.7 mg/dL (0.55-1.3)
[2020-07-17 12:57] LABS: BILIRUBIN,TOTAL 0.7 mg/dL (0.2-1)
[2020-07-17 12:58] LABS: TOT PROT 7.8 g/dl (6.4-8.2)
[2020-07-17] MEDS ORDERED: POTASSIUM CHLORIDE TABS 20 MEQ TABLET.ER (FP) PO ONE (13:41)
[2020-07-17] MEDS: MIRTAZAPINE 15 MG TABLET (FP) PO SCH (22:40)
[2020-07-17] MEDS: THIAMINE HCL 100 MG TABLET (FP) PO SCH (22:41)
[2020-07-18] MEDS ORDERED: chlordiazePOXIDE HCL 10 MG CAPSULE PO PRN
[2020-07-18] MEDS ORDERED: chlordiazePOXIDE HCL 10 MG CAPSULE PO SCH (05:00)
[2020-07-18] MEDS: LORazepam 0.5 MG TABLET PO SCH ×4 (06:00→22:30)
[2020-07-18] MEDS: hydrOXYzine PAMOATE 25 MG CAPSULE (FP) PO PRN ×4 (06:01→22:29)
[2020-07-18] MEDS: PRENATAL VITAMINS W/ FOLIC ACID TABLET (FP) PO SCH (10:07)
[2020-07-18] MEDS: valACYclovir HCL 500 MG TABLET (FP) PO SCH ×2 (14:24→22:30)
[2020-07-18] MEDS: BACITRACIN 0.9 GM PACKET TP SCH (14:24)
[2020-07-18] MEDS: MIRTAZAPINE 15 MG TABLET (FP) PO SCH (22:30)
[2020-07-18] MEDS: THIAMINE HCL 100 MG TABLET (FP) PO SCH (22:30)
[2020-07-19] MEDS ORDERED: LORazepam 0.5 MG TABLET PO PRN
[2020-07-19] MEDS ORDERED: chlordiazePOXIDE HCL 10 MG CAPSULE PO SCH (05:00)
[2020-07-19] MEDS ORDERED: LORazepam 0.5 MG TABLET PO ONE (05:00)
[2020-07-19] MEDS: hydrOXYzine PAMOATE 25 MG CAPSULE (FP) PO PRN (05:46)
[2020-07-19 09:41] VITALS: BP 117/84; PULSE 106; TEMP 96.8
[2020-07-19] MEDS: valACYclovir HCL 500 MG TABLET (FP) PO SCH (10:27)
[2020-07-19] MEDS: PRENATAL VITAMINS W/ FOLIC ACID TABLET (FP) PO SCH (10:27)
[2020-07-19] MEDS: BACITRACIN 0.9 GM PACKET TP SCH (10:33)
[2020-07-20] MEDS ORDERED: chlordiazePOXIDE HCL 10 MG CAPSULE PO ONE (05:00)
== END 2020-07-19 10:55 | disposition other institution (70) | DRG 775 ==
LOC: YASAS 04:00 → Y3N 04:19
PROVIDERS: ADMIT Allergy & Immunology; ATTEND Allergy & Immunology
PROC: HZ2ZZZZ Detoxification Services for Substance Abuse Treatment (ICD-10-PCS; principal; 2020-07-16)
DX: F10.230 Alcohol dependence with withdrawal, uncomplicated (principal); F10.280 Alcohol dependence with alcohol-induced anxiety disorder; F10.282 Alcohol dependence with alcohol-induced sleep disorder; F10.24 Alcohol dependence with alcohol-induced mood disorder; F32.9 Major depressive disorder, single episode, unspecified; F41.9 Anxiety disorder, unspecified; K86.1 Other chronic pancreatitis; D64.9 Anemia, unspecified; E87.6 Hypokalemia; E78.1 Pure hyperglyceridemia; B00.1 Herpesviral vesicular dermatitis; R74.01 Elevation of levels of liver transaminase levels; Z87.19 Personal history of other diseases of the digestive system
CPT/HCPCS: 36415; 80053; 84132; 85027; 86780; 87389; 93005; 93010; C9803; U0003

== ENCOUNTER 2020-07-19 11:14 | Inpatient (IN) | payer OTHER ==
[2020-07-19] MEDS ORDERED: MASKS NR ONE (13:20)
[2020-07-19] MEDS ORDERED: MAGNESIUM CITRATE 300 ML BOTTLE PO PRN (13:23)
[2020-07-19] MEDS ORDERED: guaiFENesin 200 MG/10 ML 10 ML UNIT-DOSE CUPS PO PRN (13:23)
[2020-07-19] MEDS ORDERED: P-EPHED 60MG/TRIPROLIDI 2.5MG TABLET PO PRN (13:23)
[2020-07-19] MEDS ORDERED: ACETAMINOPHEN 325 MG TABLET (FP) PO PRN (13:23)
[2020-07-19] MEDS ORDERED: IBUPROFEN 400 MG TABLET (FP) PO PRN (13:23)
[2020-07-19] MEDS ORDERED: MENTHOL/PHENOL 1 EACH UD MM PRN (13:23)
[2020-07-19] MEDS ORDERED: NICOTINE POLACRILEX 2 MG GUM BUC PRN (13:23)
[2020-07-19] MEDS ORDERED: MAG HYDROX/AL HYDROX/SIMETH 30 ML UNIT-DOSE CUP PO PRN (13:23)
[2020-07-19] MEDS ORDERED: MAGNESIUM HYDROX 2400MG/30ML ORAL SUSPENSION 30 ML CUP PO PRN (13:23)
[2020-07-19] MEDS ORDERED: LOPERAMIDE HCL 2 MG CAPSULE PO PRN (13:23)
[2020-07-19] MEDS: BACITRACIN 0.9 GM PACKET TP SCH (18:15)
[2020-07-19] MEDS: valACYclovir HCL 500 MG TABLET (FP) PO SCH (21:54)
[2020-07-19] MEDS: hydrOXYzine PAMOATE 25 MG CAPSULE (FP) PO PRN (21:56)
[2020-07-19] MEDS ORDERED: MELATONIN 5 MG TABLETS PO SCH (22:00)
[2020-07-19] MEDS ORDERED: THIAMINE HCL 100 MG TABLET (FP) PO SCH (22:00)
[2020-07-19] MEDS ORDERED: PT OWN MED DRAWER 7, Y5N ONE (22:01)
[2020-07-20] MEDS: hydrOXYzine PAMOATE 25 MG CAPSULE (FP) PO PRN ×2 (06:28→10:42)
[2020-07-20 07:08] VITALS: BP 110/78; PULSE 76; TEMP 97.3
[2020-07-20] MEDS ORDERED: PT OWN MED DRAWER 7, Y5N ONE (09:14)
[2020-07-20] MEDS ORDERED: PRENATAL VITAMINS W/ FOLIC ACID TABLET (FP) PO SCH (10:00)
[2020-07-20] MEDS ORDERED: NICOTINE 7 MG/24 HOURS TOPICAL PATCH TD SCH (10:00)
[2020-07-20] MEDS: BACITRACIN 0.9 GM PACKET TP SCH (10:37)
[2020-07-20] MEDS: valACYclovir HCL 500 MG TABLET (FP) PO SCH (10:38)
== END 2020-07-20 15:00 | disposition home or self-care (01) | DRG 772 ==
LOC: YASAS 11:14 → Y3E 11:16
PROVIDERS: ADMIT Allergy & Immunology; ATTEND Allergy & Immunology
PROC: HZ42ZZZ Group Counseling for Substance Abuse Treatment, Cognitive-Behavioral (ICD-10-PCS; principal; 2020-07-19)
DX: F10.20 Alcohol dependence, uncomplicated (principal); F10.280 Alcohol dependence with alcohol-induced anxiety disorder; F41.9 Anxiety disorder, unspecified; F32.9 Major depressive disorder, single episode, unspecified; G47.00 Insomnia, unspecified; D64.9 Anemia, unspecified; E78.5 Hyperlipidemia, unspecified; Z87.19 Personal history of other diseases of the digestive system

== ENCOUNTER 2021-05-01 11:29 | Inpatient (IN) | payer OTHER ==
[2021-05-01] MEDS ORDERED: IBUPROFEN 400 MG TABLET (FP) PO PRN (12:16)
[2021-05-01] MEDS ORDERED: BISMUTH SUBSALICYLATE 524 MG/30 ML PO PRN (12:16)
[2021-05-01] MEDS ORDERED: ACETAMINOPHEN 325 MG TABLET (FP) PO PRN ×2 (12:16)
[2021-05-01] MEDS ORDERED: MENTHOL/PHENOL 1 EACH UD MM PRN (12:16)
[2021-05-01] MEDS ORDERED: ONDANSETRON *ODT* 4 MG TABLET SL PRN (12:16)
[2021-05-01] MEDS ORDERED: MAG HYDROX/AL HYDROX/SIMETH 30 ML UNIT-DOSE CUP PO PRN (12:16)
[2021-05-01] MEDS ORDERED: MAGNESIUM CITRATE 300 ML BOTTLE PO PRN (12:16)
[2021-05-01] MEDS ORDERED: MAGNESIUM HYDROX 2400MG/30ML ORAL SUSPENSION 30 ML CUP PO PRN (12:16)
[2021-05-01] MEDS ORDERED: NICOTINE 10 MG CARTRIDGE (INHALER) IH PRN (12:16)
[2021-05-01 12:32] VITALS: BMI 27.4
[2021-05-01] MEDS: diazePAM 5 MG TABLET PO PRN ×3 (13:24→22:20)
[2021-05-01] MEDS: hydrOXYzine PAMOATE 25 MG CAPSULE (FP) PO SCH ×3 (13:41→22:20)
[2021-05-01 17:39] LABS: HEMATOCRIT 31.6 % (32.4-45.2); HEMOGLOBIN 10.6 GM/dL (10.7-15.3); MCH 29.1 pg (25.7-33.7); MCHC 33.5 g/dl (32.0-36.0); MEAN PLT VOLUME 7.6 fl (7.5-11.1); PLATELET COUNT 366 10^3/uL (134-434); RBC 3.63 M/mm3 (3.60-5.2); RDW 17.9 % (11.6-15.6); WHITE BLOOD COUNT 6.2 K/mm3 (4.0-10.0)
[2021-05-01 17:53] LABS: ALBUMIN 3.6 g/dl (3.4-5.0); CALCIUM 8.5 mg/dL (8.5-10.1)
[2021-05-01 17:54] LABS: BLOOD UREA NITROGEN 4.3 mg/dL (7-18)
[2021-05-01 17:56] LABS: CREATININE 0.6 mg/dL (0.55-1.3)
[2021-05-01 17:58] LABS: BILIRUBIN,TOTAL 0.4 mg/dL (0.2-1); TOT PROT 7.7 g/dl (6.4-8.2)
[2021-05-01] MEDS ORDERED: MELATONIN 5 MG TABLETS PO SCH (22:00)
[2021-05-01] MEDS: THIAMINE HCL 100 MG TABLET (FP) PO SCH (22:20)
[2021-05-01] MEDS: MIRTAZAPINE 30 MG TABLET PO SCH (22:20)
[2021-05-01] MEDS: diazePAM 5 MG TABLET PO SCH (23:03)
[2021-05-02] MEDS: hydrOXYzine PAMOATE 25 MG CAPSULE (FP) PO SCH ×5 (05:56→22:09)
[2021-05-02] MEDS: diazePAM 5 MG TABLET PO SCH ×4 (05:56→22:09)
[2021-05-02] MEDS: METHOCARBAMOL 500 MG TABLET PO PRN ×2 (10:15→17:56)
[2021-05-02] MEDS: PRENATAL VITAMINS W/ FOLIC ACID TABLET (FP) PO SCH (10:15)
[2021-05-02] MEDS: diazePAM 5 MG TABLET PO PRN (13:35)
[2021-05-02] MEDS: MIRTAZAPINE 30 MG TABLET PO SCH (22:09)
[2021-05-02] MEDS: THIAMINE HCL 100 MG TABLET (FP) PO SCH (22:09)
[2021-05-03] MEDS: diazePAM 5 MG TABLET PO SCH ×3 (06:01→22:26)
[2021-05-03] MEDS: hydrOXYzine PAMOATE 25 MG CAPSULE (FP) PO SCH ×5 (06:01→22:25)
[2021-05-03] MEDS: METHOCARBAMOL 500 MG TABLET PO PRN ×2 (10:41→22:25)
[2021-05-03] MEDS: PRENATAL VITAMINS W/ FOLIC ACID TABLET (FP) PO SCH (10:41)
[2021-05-03] MEDS: diazePAM 5 MG TABLET PO PRN (10:41)
[2021-05-03] MEDS: THIAMINE HCL 100 MG TABLET (FP) PO SCH (22:25)
[2021-05-03] MEDS: MIRTAZAPINE 30 MG TABLET PO SCH (22:25)
[2021-05-04] MEDS: diazePAM 5 MG TABLET PO SCH ×2 (06:26→17:35)
[2021-05-04] MEDS: hydrOXYzine PAMOATE 25 MG CAPSULE (FP) PO SCH ×5 (06:27→22:32)
[2021-05-04] MEDS: METHOCARBAMOL 500 MG TABLET PO PRN (10:15)
[2021-05-04] MEDS: diazePAM 5 MG TABLET PO PRN (10:15)
[2021-05-04] MEDS: PRENATAL VITAMINS W/ FOLIC ACID TABLET (FP) PO SCH (10:15)
[2021-05-04] MEDS: MIRTAZAPINE 30 MG TABLET PO SCH (22:32)
[2021-05-04] MEDS: THIAMINE HCL 100 MG TABLET (FP) PO SCH (22:32)
[2021-05-05] MEDS: hydrOXYzine PAMOATE 25 MG CAPSULE (FP) PO SCH (05:53)
[2021-05-05] MEDS ORDERED: diazePAM 5 MG TABLET PO ONE (06:00)
[2021-05-05 09:39] VITALS: BP 112/67; PULSE 93; TEMP 97.9
== END 2021-05-05 10:10 | disposition home or self-care (01) | DRG 775 ==
LOC: YASAS 11:29 → Y6N 12:44
PROVIDERS: ADMIT Allergy & Immunology; ATTEND Allergy & Immunology
PROC: HZ2ZZZZ Detoxification Services for Substance Abuse Treatment (ICD-10-PCS; principal; 2021-05-01)
DX: F10.230 Alcohol dependence with withdrawal, uncomplicated (principal); F10.282 Alcohol dependence with alcohol-induced sleep disorder; F10.280 Alcohol dependence with alcohol-induced anxiety disorder; F13.10 Sedative, hypnotic or anxiolytic abuse, uncomplicated; F19.24 Other psychoactive substance dependence with psychoactive substance-induced mood disorder; F19.282 Other psychoactive substance dependence with psychoactive substance-induced sleep disorder; F33.9 Major depressive disorder, recurrent, unspecified; F41.9 Anxiety disorder, unspecified; F40.10 Social phobia, unspecified; D64.9 Anemia, unspecified; E78.1 Pure hyperglyceridemia; R74.01 Elevation of levels of liver transaminase levels; G47.00 Insomnia, unspecified; Z87.19 Personal history of other diseases of the digestive system; Z56.0 Unemployment, unspecified
CPT/HCPCS: 36415; 80053; 81025; 82962; 85027; 86780; C9803; Q0162; U0003; U0005

== ENCOUNTER 2023-03-13 18:53 | Inpatient (IN) | payer OTHER ==
[2023-03-13 19:34] VITALS: BMI 24.4
[2023-03-13] MEDS ORDERED: ONDANSETRON *ODT* 4 MG TABLET SL PRN (20:04)
[2023-03-13] MEDS ORDERED: IBUPROFEN 600 MG TABLET (FP) PO PRN (20:04)
[2023-03-13] MEDS ORDERED: LOPERAMIDE HCL 2 MG CAPSULE PO PRN (20:04)
[2023-03-13] MEDS ORDERED: BENZONATATE 200 MG CAPSULE PO PRN (20:04)
[2023-03-13] MEDS ORDERED: DICYCLOMINE HCL 10 MG CAPSULE PO PRN (20:04)
[2023-03-13] MEDS ORDERED: hydrOXYzine PAMOATE 25 MG CAPSULE (FP) PO PRN (20:04)
[2023-03-13] MEDS ORDERED: guaiFENesin 600 MG TABLET.ER (FP) PO PRN (20:04)
[2023-03-13] MEDS ORDERED: BISMUTH SUBSALICYLATE 524 MG/30 ML PO PRN (20:04)
[2023-03-13] MEDS ORDERED: MAG HYDROX/AL HYDROX/SIMETH 30 ML UNIT-DOSE CUP PO PRN (20:04)
[2023-03-13] MEDS ORDERED: BENZOCAINE/MENTHOL (CHLORASEPTIC ) LOZENGE MM PRN (20:04)
[2023-03-13] MEDS ORDERED: IBUPROFEN 400 MG TABLET (FP) PO PRN (20:04)
[2023-03-13] MEDS ORDERED: POLYETHYLENE GLYCOL (HEALTHYLAX) 3350 17 GM PACKET PO PRN (20:04)
[2023-03-13] MEDS ORDERED: NALOXONE HCL 0.4 MG/ML VIAL IM PRN (20:04)
[2023-03-13] MEDS ORDERED: MAGNESIUM HYDROX 2400MG/30ML ORAL SUSPENSION 30 ML CUP PO PRN (20:04)
[2023-03-13] MEDS ORDERED: NALOXONE HCL (KLOXXADO) 8 MG SPRAY NS PRN (20:04)
[2023-03-13] MEDS ORDERED: ACETAMINOPHEN 325 MG TABLET (FP) PO PRN (20:04)
[2023-03-13] MEDS ORDERED: chlordiazePOXIDE HCL 25 MG CAPSULE PO PRN (20:07)
[2023-03-13] MEDS ORDERED: TRIMETHOBENZAMIDE HCL 200MG/2ML INJ IM ONE (20:16)
[2023-03-13] MEDS ORDERED: hydrOXYzine PAMOATE 25 MG CAPSULE (FP) PO ONE (21:21)
[2023-03-13] MEDS ORDERED: MELATONIN 5 MG TABLETS PO SCH (22:00)
[2023-03-13] MEDS: THIAMINE HCL 100 MG TABLET (FP) PO SCH (22:11)
[2023-03-13] MEDS: chlordiazePOXIDE HCL 25 MG CAPSULE PO SCH (22:13)
[2023-03-13] MEDS: METHOCARBAMOL 500 MG TABLET PO PRN (22:37)
[2023-03-14] MEDS: chlordiazePOXIDE HCL 25 MG CAPSULE PO SCH ×4 (05:45→22:14)
[2023-03-14 09:37] LABS: HEMATOCRIT 34.8 % (32.4-45.2); HEMOGLOBIN 12.3 GM/dL (10.7-15.3); MCH 28.1 pg (25.7-33.7); MCHC 35.2 g/dl (32.0-36.0); MEAN CELL VOLUME 79.8 fl (80-96); PLATELET COUNT 227 10^3/uL (134-434); RBC 4.36 M/mm3 (3.60-5.2); RDW 17.4 % (11.6-15.6); WHITE BLOOD COUNT 5.6 K/mm3 (4.0-10.0)
[2023-03-14] MEDS: PRENATAL VITAMINS W/ FOLIC ACID TABLET (FP) PO SCH (10:23)
[2023-03-14] MEDS: hydrOXYzine PAMOATE 25 MG CAPSULE (FP) PO PRN (10:25)
[2023-03-14 10:27] LABS: BLOOD UREA NITROGEN 6.6 mg/dL (7-18)
[2023-03-14 10:52] LABS: ALBUMIN 3.9 g/dl (3.4-5.0); CALCIUM 8.9 mg/dL (8.5-10.1)
[2023-03-14 10:56] LABS: CREATININE 0.6 mg/dL (0.55-1.3)
[2023-03-14 10:57] LABS: BILIRUBIN,TOTAL 1.6 mg/dL (0.2-1); TOT PROT 7.5 g/dl (6.4-8.2)
[2023-03-14 11:36] LABS: POTASSIUM 3.1 mmol/L (3.5-5.1)
[2023-03-14] MEDS: POTASSIUM CHLORIDE ORAL LIQUID 20 MEQ/15 ML PO SCH ×2 (15:34→22:13)
[2023-03-14] MEDS: METHOCARBAMOL 500 MG TABLET PO PRN (17:29)
[2023-03-14] MEDS ORDERED: MIRTAZAPINE 15 MG TABLET (FP) PO SCH (22:00)
[2023-03-14] MEDS: THIAMINE HCL 100 MG TABLET (FP) PO SCH (22:14)
[2023-03-15] MEDS: chlordiazePOXIDE HCL 25 MG CAPSULE PO SCH ×2 (05:27→10:13)
[2023-03-15] MEDS: hydrOXYzine PAMOATE 25 MG CAPSULE (FP) PO PRN (05:32)
[2023-03-15 09:17] VITALS: BP 111/74; PULSE 76; RESP 18; TEMP 97.3
[2023-03-15] MEDS: PRENATAL VITAMINS W/ FOLIC ACID TABLET (FP) PO SCH (10:13)
[2023-03-16] MEDS ORDERED: chlordiazePOXIDE HCL 10 MG CAPSULE PO PRN
[2023-03-16] MEDS ORDERED: chlordiazePOXIDE HCL 10 MG CAPSULE PO SCH (05:00)
[2023-03-17] MEDS ORDERED: chlordiazePOXIDE HCL 10 MG CAPSULE PO SCH (05:00)
[2023-03-18] MEDS ORDERED: chlordiazePOXIDE HCL 10 MG CAPSULE PO ONE (05:00)
== END 2023-03-15 10:58 | disposition left against medical advice (07) | DRG 770 ==
LOC: YASAS 18:53 → Y3N 21:18
PROVIDERS: ADMIT Allergy & Immunology; ATTEND Surgery
PROC: HZ2ZZZZ Detoxification Services for Substance Abuse Treatment (ICD-10-PCS; principal; 2023-03-13)
DX: F10.230 Alcohol dependence with withdrawal, uncomplicated (principal); F12.20 Cannabis dependence, uncomplicated; F41.8 Other specified anxiety disorders; E87.6 Hypokalemia; E78.1 Pure hyperglyceridemia
CPT/HCPCS: 36415; 80053; 81025; 85027; 86780; 87635; 93005; 93010

== ENCOUNTER 2023-08-07 17:20 | Inpatient (IN) | payer OTHER ==
[2023-08-07 17:53] VITALS: BMI 28.3
[2023-08-07] MEDS ORDERED: BISMUTH SUBSALICYLATE 524 MG/30 ML PO PRN (20:07)
[2023-08-07] MEDS ORDERED: BENZONATATE 200 MG CAPSULE PO PRN (20:07)
[2023-08-07] MEDS ORDERED: ONDANSETRON *ODT* 4 MG TABLET SL PRN (20:07)
[2023-08-07] MEDS ORDERED: NALOXONE HCL 0.4 MG/ML VIAL IM PRN (20:07)
[2023-08-07] MEDS ORDERED: IBUPROFEN 600 MG TABLET (FP) PO PRN (20:07)
[2023-08-07] MEDS ORDERED: NICOTINE POLACRILEX 4 MG GUM BUC PRN (20:07)
[2023-08-07] MEDS ORDERED: chlordiazePOXIDE HCL 25 MG CAPSULE PO PRN (20:07)
[2023-08-07] MEDS ORDERED: MAG HYDROX/AL HYDROX/SIMETH 30 ML UNIT-DOSE CUP PO PRN (20:07)
[2023-08-07] MEDS ORDERED: BENZOCAINE/MENTHOL (CHLORASEPTIC ) LOZENGE MM PRN (20:07)
[2023-08-07] MEDS ORDERED: IBUPROFEN 400 MG TABLET (FP) PO PRN (20:07)
[2023-08-07] MEDS ORDERED: ACETAMINOPHEN 325 MG TABLET (FP) PO PRN (20:07)
[2023-08-07] MEDS ORDERED: LOPERAMIDE HCL 2 MG CAPSULE PO PRN (20:07)
[2023-08-07] MEDS ORDERED: MAGNESIUM HYDROX 2400MG/30ML ORAL SUSPENSION 30 ML CUP PO PRN (20:07)
[2023-08-07] MEDS ORDERED: NALOXONE HCL (KLOXXADO) 8 MG SPRAY NS PRN (20:07)
[2023-08-07] MEDS ORDERED: POLYETHYLENE GLYCOL (HEALTHYLAX) 3350 17 GM PACKET PO PRN (20:07)
[2023-08-07] MEDS ORDERED: guaiFENesin 600 MG TABLET.ER (FP) PO PRN (20:07)
[2023-08-07] MEDS ORDERED: DICYCLOMINE HCL 10 MG CAPSULE PO PRN (20:07)
[2023-08-07] MEDS ORDERED: TRIMETHOBENZAMIDE HCL 200MG/2ML INJ IM ONE (20:20)
[2023-08-07] MEDS ORDERED: chlordiazePOXIDE HCL 25 MG CAPSULE ONE (20:20)
[2023-08-07] MEDS: TRIMETHOBENZAMIDE HCL 200MG/2ML INJ IM ONE (20:26)
[2023-08-07] MEDS: chlordiazePOXIDE HCL 25 MG CAPSULE PO ONE (20:28)
[2023-08-07] MEDS: chlordiazePOXIDE HCL 25 MG CAPSULE PO SCH (22:41)
[2023-08-07] MEDS: hydrOXYzine PAMOATE 25 MG CAPSULE (FP) PO PRN (22:41)
[2023-08-07] MEDS: MELATONIN 5 MG TABLETS PO SCH (22:41)
[2023-08-07] MEDS: THIAMINE HCL 100 MG TABLET (FP) PO SCH (22:41)
[2023-08-08] MEDS: PRENATAL VITAMINS W/ FOLIC ACID TABLET (FP) PO SCH (10:33)
[2023-08-08] MEDS: NICOTINE 14 MG/24 HOURS TOPICAL PATCH TD SCH (10:35)
[2023-08-08 11:50] LABS: HEMATOCRIT 34.8 % (32.4-45.2); HEMOGLOBIN 12.1 GM/dL (10.7-15.3); MCH 29.3 pg (25.7-33.7); MCHC 34.9 g/dl (32.0-36.0); MEAN CELL VOLUME 84.1 fl (80-96); MEAN PLT VOLUME 8.6 fl (7.5-11.1); PLATELET COUNT 241 10^3/uL (134-434); RBC 4.14 M/mm3 (3.60-5.2); RDW 15.9 % (11.6-15.6); WHITE BLOOD COUNT 6.9 K/mm3 (4.0-10.0)
[2023-08-08 11:53] LABS: CHLORIDE 99 mmol/L (98-107); POTASSIUM 3.4 mmol/L (3.5-5.1); SODIUM 136 mmol/L (136-145)
[2023-08-08 12:03] LABS: ALBUMIN 3.7 g/dl (3.4-5.0); ANION GAP 8 mmol/L (4-13); BLOOD UREA NITROGEN 6.9 mg/dL (7-18); CALCIUM 9.1 mg/dL (8.5-10.1); CO2 28 mmol/L (21-32)
[2023-08-08 12:04] LABS: GLUCOSE,RANDOM 128 mg/dL (74-106)
[2023-08-08 12:06] LABS: CREATININE 0.7 mg/dL (0.55-1.3); SGOT/AST 48 U/L (15-37); SGPT/ALT 22 U/L (13-61)
[2023-08-08 12:08] LABS: BILIRUBIN,TOTAL 1.1 mg/dL (0.2-1); TOT PROT 7.6 g/dl (6.4-8.2)
[2023-08-08 12:09] LABS: ALK PHOS 74 U/L (45-117)
[2023-08-08 12:43] VITALS: BP 102/72; PULSE 71; RESP 16; TEMP 97.3
[2023-08-09] MEDS ORDERED: chlordiazePOXIDE HCL 25 MG CAPSULE PO SCH (05:00)
[2023-08-10] MEDS ORDERED: chlordiazePOXIDE HCL 10 MG CAPSULE PO PRN
[2023-08-10] MEDS ORDERED: chlordiazePOXIDE HCL 10 MG CAPSULE PO SCH (05:00)
[2023-08-11] MEDS ORDERED: chlordiazePOXIDE HCL 10 MG CAPSULE PO SCH (05:00)
[2023-08-12] MEDS ORDERED: chlordiazePOXIDE HCL 10 MG CAPSULE PO ONE (05:00)
== END 2023-08-08 13:31 | disposition left against medical advice (07) | DRG 770 ==
LOC: YASAS 17:20 → Y6N 20:28
PROVIDERS: ADMIT Allergy & Immunology; ATTEND Surgery
PROC: HZ2ZZZZ Detoxification Services for Substance Abuse Treatment (ICD-10-PCS; principal; 2023-08-07)
DX: F10.230 Alcohol dependence with withdrawal, uncomplicated (principal); F12.20 Cannabis dependence, uncomplicated; F17.213 Nicotine dependence, cigarettes, with withdrawal; F10.24 Alcohol dependence with alcohol-induced mood disorder; E87.6 Hypokalemia; R73.9 Hyperglycemia, unspecified
CPT/HCPCS: 36415; 80053; 80305; 80307; 81025; 85027; 86780; 87635; 87811

== ENCOUNTER 2023-11-26 05:14 | Emergency (ER) | payer BC, OTHER ==
[2023-11-26 05:24] VITALS: BP 114/70; PULSE 110; RESP 18; TEMP 97.8; BMI 24.7
[2023-11-26] MEDS ORDERED: diazePAM 5 MG TABLET ONE (05:57)
[2023-11-26] MEDS ORDERED: ONDANSETRON *ODT* 4 MG TABLET ONE (05:57)
[2023-11-26] MEDS: ONDANSETRON *ODT* 4 MG TABLET SL ONE (06:01)
[2023-11-26] MEDS: diazePAM 5 MG TABLET PO ONE (06:01)
== END 2023-11-26 06:33 | disposition left against medical advice (07) ==
LOC: JER 05:14
DX: F10.239 Alcohol dependence with withdrawal, unspecified (principal); Y90.9 Presence of alcohol in blood, level not specified; R11.2 Nausea with vomiting, unspecified; R25.1 Tremor, unspecified; R00.0 Tachycardia, unspecified
CPT/HCPCS: 99283-25; Q0162

== ENCOUNTER 2024-01-13 12:16 | Emergency (ER) | payer BC, OTHER ==
[2024-01-13 12:53] VITALS: TEMP 97.7; BMI 26.5
[2024-01-13] MEDS ORDERED: chlordiazePOXIDE HCL 25 MG CAPSULE ONE (13:27)
[2024-01-13] MEDS: chlordiazePOXIDE HCL 25 MG CAPSULE PO ONE (13:33)
[2024-01-13] MEDS ORDERED: ONDANSETRON *ODT* 4 MG TABLET ONE (13:35)
[2024-01-13] MEDS ORDERED: diazePAM 5 MG TABLET ONE (13:35)
[2024-01-13] MEDS: diazePAM 5 MG TABLET PO ONE (13:37)
[2024-01-13] MEDS: ONDANSETRON *ODT* 4 MG TABLET SL ONE (13:37)
[2024-01-13] MEDS ORDERED: LORazepam 1 MG TABLET ONE (15:26)
[2024-01-13] MEDS: LORazepam 2 MG TABLET PO ONE (15:30)
[2024-01-13 15:31] VITALS: BP 110/75; PULSE 115; RESP 19
== END 2024-01-13 17:39 | disposition left against medical advice (07) ==
LOC: JER 12:16
DX: F10.239 Alcohol dependence with withdrawal, unspecified (principal); R11.10 Vomiting, unspecified; R00.0 Tachycardia, unspecified; R25.1 Tremor, unspecified; Y90.9 Presence of alcohol in blood, level not specified
CPT/HCPCS: 99283-25; Q0162